=== PATIENT | female | born 1995 | race American Indian/Alaskan Native ===

== ENCOUNTER 2020-07-16 09:05 | Outpatient (CLI) | payer SELFPAY ==
[2020-07-16 09:29] VITALS: BP 119/64
[2020-07-16] MEDS ORDERED: ACETAMINOPHEN 500 MG TAB PO NR (10:19)
[2020-07-16] MEDS ORDERED: LACTATED RINGERS 500 ML IV ONE (12:00)
== END 2020-07-16 12:06 | disposition home or self-care (01) ==
LOC: TRG 09:05 → APU 09:06 → TRG 12:06
PROVIDERS: ATTEND Obstetrics & Gynecology
DX: O26.892 Other specified pregnancy related conditions, second trimester (principal); M54.5 Low back pain; Z3A.21 21 weeks gestation of pregnancy
CPT/HCPCS: 59025

== ENCOUNTER 2020-11-25 14:14 | Inpatient (IN) | payer MEDICAID ==
[2020-11-25] MEDS ORDERED: MINERAL OIL 30 ML ORAL LIQD PO PRN (15:54)
[2020-11-25] MEDS ORDERED: miSOPROStol 200 MCG TAB PR PRN (15:54)
[2020-11-25] MEDS ORDERED: OXYTOCIN 10 UNIT/1 ML INJ IM PRN (15:54)
[2020-11-25] MEDS ORDERED: LOPERAMIDE 2 MG CAP PO PRN (15:54)
[2020-11-25] MEDS ORDERED: ACETAMINOPHEN 325 MG TAB PO PRN (15:54)
[2020-11-25] MEDS ORDERED: ePHEDrine SULFATE 50 MG/1 ML INJ IV PRN ×2 (15:54→23:17)
[2020-11-25] MEDS ORDERED: BUTORPHANOL 2 MG/1 ML INJ IV PRN (15:54)
[2020-11-25] MEDS ORDERED: TERBUTALINE 1 MG/1 ML INJ SUB-Q PRN (15:54)
[2020-11-25] MEDS ORDERED: fentaNYL 100 MCG/2 ML INJ IV PRN (15:54)
[2020-11-25] MEDS ORDERED: METHYLERGONOVINE MALEATE 0.2 MG/ML VIAL IM PRN (15:54)
[2020-11-25] MEDS ORDERED: LIDOCAINE (2%) 20 MG/1 ML VIAL 20 ML MDV INFILTRATI ONE (15:54)
[2020-11-25] MEDS ORDERED: CARBOPROST TROMETHAMINE 250 MCG/1 ML INJ IM PRN (15:54)
[2020-11-25] MEDS ORDERED: OXYTOCIN DRIP 30 UNITS/500 ML BAG IV SCH ×2 (16:00)
[2020-11-25] MEDS: LACTATED RINGERS 1,000 ML IV SCH (16:23)
[2020-11-25 16:43] LABS: Hematocrit 36.9 % (30.3-42.9); Mean Corpuscular HGB Conc 35 % (30-34); Mean Corpuscular Volume 92 fl (79-97); Platelet Count 124 K/mm3 (140-440); Red Blood Count 4.01 M/mm3 (3.65-5.03); Red Cell Distribution Width 13.9 % (13.2-15.2)
--- NOTE | 2020-11-25 17:26 | History and Physical Report ---
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 Pt denies VB, LOF and admits to active FM. She initiated her pnc @ [facility] @ 25 4/7 wks. Pt has a hx of HSV II, Vit D def, and late care, otherwise her preg has been uncomplicated. Surgical hx includes tonsillectomy @ age 11 and right foot surgery at age 12. Neg family hx. Neg GBS. Pt was found to be in active labor and was admitted to L&D for delivery. 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 Family/Genetic History: none Social history: no significant social history, full code - Obstetrical History Expected Date of Delivery: 11/24/20 Actual Gestation: 40 Week(s) 1 Day(s) : 2 Para: 1 Hx # Term Pregnancies: 1 Number of Living Children: 1 Medications and Allergies Allergies Allergy/AdvReac Type Severity Reaction Status Date / Time sulfamethoxazole Allergy Rash Verified 02/20/16 09:00 [From Bactrim] trimethoprim [From Bactrim] Allergy Rash Verified 02/20/16 09:00 Home Medications Medication Instructions Recorded Confirmed Last Taken Type Vit-Fe Fumar-FA [ 1 tab PO QDAY 11/25/20 11/25/20 11/25/20 History Vitamin] Valacyclovir HCl [Valacyclovir] 500 mg PO DAILY 11/25/20 11/25/20 11/25/20 History Active Meds: Active Medications Acetaminophen (Acetaminophen 325 Mg Tab) 650 mg PO Q4H PRN PRN Reason: Pain, Mild (1-3) Butorphanol Tartrate (Butorphanol 2 Mg/1 Ml Inj) 2 mg IV Q2H PRN PRN Reason: Labor Pain Carboprost Tromethamine (Carboprost Tromethamine 250 Mcg/1 Ml Inj) 250 mcg IM ONCE PRN PRN Reason: Uterine Bleeding Ephedrine Sulfate (Ephedrine Sulfate 50 Mg/1 Ml Inj) 10 mg IV Q2M PRN PRN Reason: Hypotension Fentanyl (Fentanyl 100 Mcg/2 Ml Inj) 100 mcg IV Q2H PRN PRN Reason: Labor Pain Oxytocin/Sodium Chloride (Pitocin/Ns 30 Unit/500ml) 30 units in 500 mls @ 2 mls/hr IV TITR BARBARA; Protocol Last Titration: 11/25/20 16:54 Dose: 4 mls/hr, 4 mls/hr Documented by: Lactated Ringer's (Lactated Ringers) 1,000 mls @ 125 mls/hr IV DIRECT BARBARA Last Admin: 11/25/20 16:23 Dose: 125 mls/hr Documented by: Oxytocin/Sodium Chloride (Pitocin/Ns 30 Unit/500ml) 30 units in 500 mls @ 40 mls/hr IV TITR BARBARA; Protocol Loperamide HCl (Loperamide 2 Mg Cap) 2 mg PO ONCE PRN PRN Reason: give with Hemabate Methylergonovine Maleate (Methylergonovine Maleate 0.2 Mg/Ml Vial) 0.2 mg IM ONCE PRN PRN Reason: Uterine Bleeding Mineral Oil (Mineral Oil 30 Ml Oral Liqd) 30 ml PO QHS PRN PRN Reason: Constipation Misoprostol (Misoprostol 200 Mcg Tab) 800 mcg SC ONCE PRN PRN Reason: Uterine Bleeding Oxytocin (Oxytocin 10 Unit/1 Ml Inj) 10 unit IM ONCE PRN PRN Reason: Uterine Bleeding Terbutaline Sulfate (Terbutaline 1 Mg/1 Ml Inj) 0.25 mg SUB-Q ONCE PRN PRN Reason: Hyperstimulation/Hypertonicity Review of Systems All systems: negative Eyes: deferred Ears, nose, mouth and throat: deferred Breasts: normal Genitourinary: normal appearance Rectal Exam: normal exam-external/orifice - Vital Signs Vital signs: Vital Signs Pulse Ox 80 L 07/16/20 10:59 Temp Pulse Resp BP Pulse Ox 97.7 F 74 17 113/56 99 11/25/20 15:00 11/25/20 17:16 11/25/20 15:00 11/25/20 16:20 11/25/20 17:16 - Physical Exam Breasts: Positive: normal Abdomen: Positive: normal appearance, soft, normal bowel sounds Genitourinary (Female): Positive: normal external genitalia, normal perenium Vulva: both: normal Vagina: Positive: normal moisture Uterus: Positive: enlarged, normal contour, other (gravid) Adnexa: both: normal Anus/Rectum: Positive: normal perianal skin Extremities: Positive: normal - Obstetrical FHR: auscultation normal, category 1 Uterine Contraction Monitor Mode: External Cervical Dilatation: 4.5 Cervical Effacement Percentage: 60 station: -2 Uterine Contraction Pattern: Regular Uterine Tone Measurement Phase: Resting Uterine Contraction Intensity: Mild Results Result Diagrams: 11/25/20 15:30 Abnormal lab results 11/25/20 Range/Units 15:30 MCHC 35 H (30-34) % Plt Count 124 L (140-440) K/mm3 All other labs normal. Assessment and Plan A: IUP@ 40.1 wks Late pnc HSV II p; Admit to L&D Start Pitocin per protocal Continuos monitoring Pain med/Epidural prn Anticipate - Patient Problems (1) Supervision of normal IUP (intrauterine ) in multigravida Current Visit: Yes Status: Acute
--- NOTE | 2020-11-25 22:59 | Event Note ---
Date: 11/25/20 I evaluated pt at bedside and pelvic unchanged per nurse. FHR category I. AROM done by me, pelvic /- with large amount of clear amniotic fluid. IUPC placed without difficulty. Discussed epidural and pt to decide. IV pitocin at 6mu/min and will augment if not adequate. GBS negative. Expect . All questions encouraged and answered.
[2020-11-25] MEDS ORDERED: NALOXONE 2 MG/2 ML INJ IV PRN (23:17)
--- NOTE | 2020-11-25 23:17 | Anesthesia Consultation ---
Anesthesia Consult and Med Hx Date of service: 11/25/20 - Airway Anesthetic Teeth Evaluation: Good ROM Head & Neck: Adequate Mental/Hyoid Distance: Adequate Mallampati Class: Class II Intubation Access Assessment: Good - Pulmonary Exam CTA: Yes - Cardiac Exam Cardiac Exam: RRR - Pre-Operative Health Status ASA Pre-Surgery Classification: ASA2 Proposed Anesthetic Plan: Epidural - Pulmonary Hx Smoking: No Hx Asthma: No Hx Respiratory Symptoms: No SOB: No COPD: No Home Oxygen Therapy: No Hx Pneumonia: No Hx Sleep Apnea: No - Cardiovascular System Hx Hypertension: No Hx Coronary Artery Disease: No Hx Heart Attack/AMI: No Hx Angina: No Hx Percutaneous Transluminal Coronary Angioplasty (PTCA): No Hx Cardia Arrhythmia: No Hx Pacemaker: No Hx Internal Defibrillator: No Hx Valvular Heart Disease: No Hx Heart Murmur: No Hx Peripheral Vascular Disease: No - Central Nervous System Hx Neuromuscular Disorder: No Hx Seizures: No CVA: No Hx Back Pain: Yes Hx Psychiatric Problems: No - Gastrointestinal Hx Ulcer: No Hx Gastroesophageal Reflux Disease: Yes - Endocrine Hx Renal Disease: No Hx End Stage Renal Disease: No Hx Cirrhosis: No Hx Liver Disease: No Hx Insulin Dependent Diabetes: No Hx Non-Insulin Dependent Diabetes: No Hx Thyroid Disease: No Hx Hypothyroidism: No Hx Hyperthyroidism: No - Hematic Hx Anemia: Yes Hx Sickle Cell Disease: No - Other Systems Hx Alcohol Use: No Hx Substance Use: No Hx Cancer: No Hx Obesity: No
[2020-11-25] MEDS ORDERED: fentaNYL-BUPIV 2 MCG/ML-0.125% 200 MCG/100 ML BAG EPIDURAL SCH (23:45)
--- NOTE | 2020-11-25 23:59 | Progress Note ---
Labor Epidural - Labor Epidural Start Time: 23:35 Stop Time: 23:41 Performed by:: CIRILO REYES Procedure: Patient is requesting a laboring epidural for laboring pain. Patient IDed, H&P reviewed, all questions and concerns were answered, and consent was signed. Timeout was performed at bedside. Patient in sitting position. Sterile prep and drape was performed. [3] ml of 1% lidocaine skin wheal at L[3]- L [4]. 18- gauge Tino epidural needle was advanced to loss of resistance with saline technique 6cm. Negative CSF negative blood. Epidural catheter advanced to [10] centimeters. [NEGATIVE] Aspiration [NEGATIVE] test dose. Sterile dressing applied. Patient tolerated procedure.
[2020-11-26] MEDS: LACTATED RINGERS 1,000 ML IV SCH ×2 (00:20→02:01)
[2020-11-26] MEDS ORDERED: SODIUM CHLORIDE 0.9% 1000 ML 1,000 ML VG ONE (01:21)
--- NOTE | 2020-11-26 01:26 | Event Note ---
Date: 11/26/20 nurse called me to bedside for decel. When I entered the room pt in knee chest position and heart now normal. Pelvic exam /-1 and head asynclintic. scalp electrode placed and pt having early decels. Will give amnioinfusion and maintain knee chest position since intolerance of any other position when tried. Hopeful for vaginal delivery. Plan of care discussed.
[2020-11-26] MEDS ORDERED: diphenhydrAMINE 50 MG/ML VIAL IV ONE (02:21)
--- NOTE | 2020-11-26 06:12 | Procedure Note ---
OB Delivery Note - Delivery Date of Delivery: 11/26/20 Surgeon: PASTOR MASON Estimated blood loss: other (50cc) - Vaginal Delivery presentation: vertex Delivery position: OA Intrapartum events: prolonged active phase Delivery induction: AROM Delivery augmentation: pitocin Delivery monitor: external FHT, external uterine, internal FHT, internal uterine Route of delivery: Delivery placenta: spontaneous Episiotomy: none Delivery laceration: none Anesthesia: epidural Delivery comments: SAVD uncomplicated of viable female; spontaneous delivery of intact placenta with 3vessel cord. Given cytotec 800mcg prophylaxis with overdistended uterus. - A at 1 minute: 7 at 5 minutes: 9 Infant Gender: Female (wt 3120g. Clear amniotic fluid)
[2020-11-26] MEDS ORDERED: PROMETHAZINE 25 MG RECT SUPP PR PRN (06:17)
[2020-11-26] MEDS ORDERED: oxyCODONE /ACETAMINOPHEN 5-325MG TAB PO PRN (06:17)
[2020-11-26] MEDS ORDERED: WITCH HAZEL/ GLYCERIN PAD TP PRN (06:17)
[2020-11-26] MEDS ORDERED: ONDANSETRON 4 MG/2 ML INJ IV PRN (06:17)
[2020-11-26] MEDS ORDERED: MAGNESIUM HYDROXIDE (MOM) ORAL LIQD UDC PO PRN (06:17)
[2020-11-26] MEDS ORDERED: diphenhydrAMINE 25 MG CAP PO PRN (06:17)
[2020-11-26] MEDS ORDERED: LANOLIN/ZINC/DIMETHICONE (LANSINOH) 7 GM TP PRN (06:17)
[2020-11-26] MEDS ORDERED: PROMETHAZINE 25 MG TAB PO PRN (06:17)
[2020-11-26] MEDS: IBUPROFEN 600 MG TAB PO SCH ×3 (08:15→23:30)
--- NOTE | 2020-11-26 14:57 | Post Anesthesia Evaluation ---
- Post Anesthesia Evaluation Patient Participated: Yes Airway Patent: Yes Stable Respiratory Function: Yes Nausea/Vomiting: No Temp > 96.8F: Yes Pain Manageable: Yes Adequeate Hydration: Yes Anesthesia Complications: No Block Receding Appropriately: Yes Patient on Ventilator: No
[2020-11-26] MEDS: PRENATAL VIT27-FE FUMARATE-FOLIC ACID VIT TAB PO SCH (15:35)
[2020-11-26 21:22] LABS: Hematocrit 35.5 % (30.3-42.9); Hemoglobin 12.6 gm/dl (10.1-14.3)
[2020-11-27] MEDS: IBUPROFEN 600 MG TAB PO SCH ×3 (05:37→23:19)
[2020-11-27] MEDS: PRENATAL VIT27-FE FUMARATE-FOLIC ACID VIT TAB PO SCH (09:40)
--- NOTE | 2020-11-27 12:46 | Progress Note ---
Assessment and Plan - Patient Problems (1) Status post vaginal delivery Current Visit: Yes Status: Acute Plan to address problem: Patient doing well day 1. Meeting post goals. Anticipate discharge in 24 hours. s/p cytotec for mild uterine atony. Subjective - Subjective Date of service: 11/27/20 Principal diagnosis: PPD1 Interval history: day 1. Meeting post goals. Baby doing well in the room. Patient reports: appetite normal, voiding normally, pain well controlled, [place]: doing well Objective - Vital Signs Latest vital signs: Vital Signs Temp Pulse Resp BP Pulse Ox Pulse Ox 11/27/20 08:29 100 11/27/20 07:34 98.1 F 60 16 97/52 98 11/27/20 05:35 98 11/27/20 03:30 99 11/27/20 01:55 99 11/26/20 23:37 97.9 F 65 20 105/61 96 11/26/20 23:29 100 11/26/20 21:20 100 11/26/20 19:50 99 11/26/20 15:35 16 Intake and Output 11/26/20 11/27/20 11/27/20 23:59 07:59 15:59 Intake Total 480 240 Output Total 700 Balance -220 240 Intake: Oral 480 240 Output: Urine 700 Self-Catheterization 700 Other: Total, Intake Amount 240 120 Total, Output Amount 700 # Voids Self-Catheterization 1 Void 1 1 1 - Exam Abdomen: Present: normal appearance, normal bowel sounds Uterus: Present: firm, fundal height below umbilicus
--- NOTE | 2020-11-27 12:47 | Discharge Summary ---
Providers - Providers Date of Admission: 11/25/20 14:14 Date of discharge: 11/27/20 Attending physician: JR RAMÍREZ MD Primary care physician: JR RAMÍREZ MD Hospitalization Reason for admission: active labor Delivery: Episiotomy: none Laceration: none Other procedures: none complications: uterine atony (s/p cytotec 800 mcg) Discharge diagnosis: IUP at term delivered baby: female Hospital course: 25 y/o presented to [facility] by her provider r/t lizette. Pt denies VB, LOF and admits to active FM. She initiated her pnc @ [facility] @ 25 4/7 wks. Pt has a hx of HSV II, Vit D def, and late care, otherwise her preg has been uncomplicated. Surgical hx includes tonsillectomy @ age 11 and right foot surgery at age 12. Neg family hx. Neg GBS. Pt was found to be in active labor and was admitted to L&D for delivery. s/p spontaneous vaginal delivery of female infant over intact perineum on 11/26/20. Patient meeting goals and discharged in good condition on day 2 Condition at discharge: Good Disposition: DC-01 TO HOME OR SELFCARE - Discharge Diagnoses (1) Status post vaginal delivery Status: Acute Plan - Provider Discharge Summary Activity: routine Diet: routine Instructions: routine Additional instructions: [] Smoking cessation referral if applicable(refer to patient education folder for contact #) [] Refer to [facility] Booklet Call your doctor immediately for: * Fever > 100.5 * Heavy vaginal bleeding ( >1 pad per hour) * Severe persistent headache * Shortness of breath * Reddened, hot, painful area to leg or breast * Drainage or odor from incision. * Keep incision clean and dry at all times and follow doctor's instructions regarding bathing/showering - Follow up plan Follow up: PRIMARY CARE, [Referring] - 6 Weeks
[2020-11-28] MEDS: IBUPROFEN 600 MG TAB PO SCH (05:29)
[2020-11-28] MEDS: PRENATAL VIT27-FE FUMARATE-FOLIC ACID VIT TAB PO SCH (10:27)
[2020-11-28 13:47] VITALS: BP 116/78
--- NOTE | 2020-11-28 14:25 | Progress Note ---
Assessment and Plan d/c home [facility] Subjective - Subjective Date of service: 11/28/20 Principal diagnosis: PPD1 Interval history: PPD2 Patient reports: appetite normal, voiding normally, pain well controlled, ambulating normally : doing well Objective - Vital Signs Latest vital signs: Vital Signs Temp Pulse Resp BP Pulse Ox Pulse Ox 11/28/20 13:08 97.9 F 77 18 116/78 99 11/28/20 08:32 98 11/28/20 07:33 97.9 F 58 L 18 106/61 97 11/28/20 05:27 100 11/28/20 04:52 98.0 F 59 L 20 99/54 100 11/28/20 03:35 99 11/28/20 02:30 100 11/27/20 23:18 100 11/27/20 21:25 100 11/27/20 19:40 98 11/27/20 15:51 97.9 F 66 20 110/57 98 11/27/20 15:33 16 Intake and Output 11/27/20 11/28/20 11/28/20 23:59 07:59 15:59 Intake Total 480 975 Balance 480 975 Intake: Oral 480 615 Intake, Free Water 360 Other: Total, Intake Amount 240 240 # Voids Void 1 2 - Exam Breasts: Present: deferred Cardiovascular: Present: Regular rate Abdomen: Present: normal appearance, soft, normal bowel sounds Uterus: Present: fundal height below umbilicus Extremities: Present: normal Deep Tendon Reflex Grade: Normal but brisk +3 Incision: Present: normal
== END 2020-11-28 13:30 | disposition home or self-care (01) | DRG 774 ==
LOC: LD 14:14 → OB 11-26 09:53
PROC: 10E0XZZ Delivery of Products of Conception, External Approach (ICD-10-PCS; principal; 2020-11-26)
PROC: 10907ZC Drainage of Amniotic Fluid, Therapeutic from Products of Conception, Via Natural or Artificial Opening (ICD-10-PCS; 2020-11-26)
PROC: 3E0R3BZ Introduction of Anesthetic Agent into Spinal Canal, Percutaneous Approach (ICD-10-PCS; 2020-11-26)
PROC: 00HU33Z Insertion of Infusion Device into Spinal Canal, Percutaneous Approach (ICD-10-PCS; 2020-11-26)
PROC: 10H07YZ Insertion of Other Device into Products of Conception, Via Natural or Artificial Opening (ICD-10-PCS; 2020-11-26)
DX: O98.32 Other infections with a predominantly sexual mode of transmission complicating childbirth (principal); O99.62 Diseases of the digestive system complicating childbirth; Z3A.40 40 weeks gestation of pregnancy; Z37.0 Single live birth; Z20.822 Contact with and (suspected) exposure to COVID-19; Z88.2 Allergy status to sulfonamides; Z88.8 Allergy status to other drugs, medicaments and biological substances; O99.02 Anemia complicating childbirth; D64.9 Anemia, unspecified; K21.9 Gastro-esophageal reflux disease without esophagitis; O62.2 Other uterine inertia; O99.284 Endocrine, nutritional and metabolic diseases complicating childbirth; E55.9 Vitamin D deficiency, unspecified; A60.00 Herpesviral infection of urogenital system, unspecified
CPT/HCPCS: 36415; 85014; 85018; 85027; 86592; 86850; 86900; 86901; 96360; 96361; 96365; 96366; 99211; G0378; A6250; G0463; J1200; J2590; J7030; J7120; U0003